=== PATIENT | male | born 1970 | race Caucasian/White ===

== ENCOUNTER 2024-06-17 10:50 | Inpatient (IN) | payer OTHER ==
[~2024-06-17] VITALS: Ht 172.7 cm; Wt 101.2 kg
[2024-06-17 11:01] VITALS: BP 182/83; PULSE 94; RESP 18; TEMP 98.4; O2SAT 99
--- NOTE | 2024-06-17 11:15 | NUR ---
TO ER BED 7
--- NOTE | 2024-06-17 11:18 | NUR ---
53/M PRESENTED IN ED CC OF NON BLOODY VOMITING AND DIARRHEA X4 DAYS, NAUSEA , LQ ABD PAIN NON RADIATING SHARP PAIN 5/10 THAT COMES AND GO X1 WEEK TAKEN IBUPROFEN. DENIES FLU, DIARRHEA, CP, SOP, FEVER. PMHX DENIES ALLERGY ACETAMINOPHEN. VOMITING REACTION.
[2024-06-17 12:09] LABS: HEMOGLOBIN 16.2 g/dL (12.0-18.0); MEAN CORPUSCULAR HEMOGLOBIN 34 pg (27-31); MONOCYTES # (AUTO) 0.3 K/uL (0.8-1.0); WHITE BLOOD COUNT (AUTO) 4.6 K/uL (4.8-10.8)
[2024-06-17] MEDS: NACL 0.9% 1,000 ML IV ONE (12:14)
[2024-06-17 12:15] LABS: BASOPHILS # (AUTO) 0.1 K/uL (0.00-0.22); BASOPHILS % (AUTO) 1.3 % (0.0-2.0); EOSINOPHILS % (AUTO) 0.8 % (0.0-4.0); HEMATOCRIT 46.9 % (36-52); LYMPHOCYTES # (AUTO) 0.5 K/uL (2.0-11.5); LYMPHOCYTES % (AUTO) 11.4 % (20.5-51.1); MEAN CORPUSCULAR HGB CONC 34 g/dL (33-37); MEAN CORPUSCULAR VOLUME 97.5 fL (80-94); MONOCYTES % (AUTO) 6.7 % (1.7-9.3); NEUTROPHILS # (AUTO) 3.7 K/uL (1.8-7.7); NEUTROPHILS % (AUTO) 79.8 % (42.2-75.2); PLATELET COUNT (AUTO) 196 K/uL (140-450); RED BLOOD CELL COUNT(AUTO) 4.81 MIL/uL (4.20-6.10); RED CELL DISTRIBUTION WIDTH 13.3 % (11.6-13.7)
[2024-06-17] MEDS: ONDANSETRON 4 MG/2 ML VIAL IVP ONE (12:16)
[2024-06-17] MEDS: MORPHINE SULFATE 2 MG/ML SYR IVP ONE (12:18)
[2024-06-17] MEDS: LORazepam 2 MG/ML VIAL IVP ONE (12:22)
[2024-06-17 12:25] LABS: ANION GAP 18.6 (8-16); CALCIUM 8.1 mg/dL (8.5-10.1); CARBON DIOXIDE 20.7 mmol/L (21-32); POTASSIUM 3.3 mmol/L (3.5-5.1)
[2024-06-17 13:20] LABS: APPEARANCE,URINE CLEAR (CLEAR); BILIRUBIN,URINE NEGATIVE (NEGATIVE); BLOOD, URINE 1+ (NEGATIVE); COLOR,URINE YELLOW (YELLOW); LEUKOCYTE ESTERASE ,URINE NEGATIVE (NEGATIVE); NITRITE, URINE NEGATIVE (NEGATIVE); PROTEIN,URINE TRACE (NEGATIVE); UGLUCOSE 1+ (NEGATIVE); UROBILINOGEN,URINE 0.2 EU/dL (0.2 - 1)
[2024-06-17] MEDS ORDERED: KCL 20 MEQ IN 100 mL PREMIX 200 ML IV PRN (13:20)
[2024-06-17] MEDS ORDERED: ONDANSETRON 4 MG/2 ML VIAL IVP PRN (13:20)
[2024-06-17] MEDS ORDERED: MAGNESIUM OXIDE 400 MG TAB PO PRN (13:20)
[2024-06-17] MEDS ORDERED: HYDROcodone/APAP 5/325 MG 1 TAB TAB PO PRN (13:20)
[2024-06-17] MEDS ORDERED: LORazepam 1 MG TAB PO PRN ×2 (13:20→13:25)
[2024-06-17] MEDS ORDERED: traMADol 50 MG TAB PO PRN (13:20)
[2024-06-17] MEDS: diazePAM 5 MG TAB PO SCH (13:34)
[2024-06-17 13:42] LABS: ALBUMIN 3.7 g/dL (3.4-5.0); BILIRUBIN,DIRECT 0.2 mg/dL (0.0-0.3); TOTAL BILIRUBIN 0.8 mg/dL (0.0-1.0); TOTAL PROTEIN, SERUM 7.7 g/dL (6.4-8.2)
--- NOTE | 2024-06-17 14:01 | NUR ---
REPORT GIVEN TO YUSEF. PT GOING TO TELE 105B, NO FURTHER QUESTIONS ASKED
[2024-06-17 14:10] LABS: BACTERIA,URINE 3+ /HPF (None Seen); MUCUS,URINE 3+ /LPF (None Seen); SQUAMOUS EPITHELIAL CELL,UR 4-10 (MOD) /LPF (0-3 (FEW)); WBC,URINE 0-5 /HPF (0-5)
[2024-06-17 14:11] LABS: HYALINE CASTS, URINE 0-10 /LPF (None Seen)
[2024-06-17 16:00] VITALS: PULSE 89; RESP 18; O2SAT 98
--- NOTE | 2024-06-17 19:25 | NUR ---
RECEIVED PT FROM DAY SHIFT NURSE. PT IS ON BED AWAKE, ALERT AND VERBALLY RESPONSIVE. IV SITE IS ON LEFT FOREARM 20G, ON SALINE LOCK. NO SOB OR DISTRESS.
[2024-06-17 20:00] VITALS: BP 159/80; PULSE 71; PULSE 72; RESP 19; TEMP 97.2; O2SAT 98
[2024-06-17] MEDS: ZOLPIDEM 5 MG TAB PO PRN (23:05)
[2024-06-18] VITALS: BP 156/81; PULSE 62; PULSE 71; RESP 19; TEMP 97.6; O2SAT 96
[2024-06-18 04:00] VITALS: BP 153/76; PULSE 54; PULSE 81; RESP 19; TEMP 97.3; O2SAT 97
[2024-06-18 06:47] LABS: BASOPHILS % (AUTO) 0.9 % (0.0-2.0); EOSINOPHILS # (AUTO) 0.2 K/uL (0-0.4); EOSINOPHILS % (AUTO) 3.7 % (0.0-4.0); HEMATOCRIT 42.4 % (36-52); HEMOGLOBIN 14.6 g/dL (12.0-18.0); LYMPHOCYTES # (AUTO) 0.4 K/uL (2.0-11.5); LYMPHOCYTES % (AUTO) 8.3 % (20.5-51.1); MEAN CORPUSCULAR HEMOGLOBIN 34 pg (27-31); MEAN CORPUSCULAR HGB CONC 34 g/dL (33-37); MEAN CORPUSCULAR VOLUME 97.5 fL (80-94); MONOCYTES # (AUTO) 0.4 K/uL (0.8-1.0); MONOCYTES % (AUTO) 8.1 % (1.7-9.3); PLATELET COUNT (AUTO) 158 K/uL (140-450); RED BLOOD CELL COUNT(AUTO) 4.35 MIL/uL (4.20-6.10); RED CELL DISTRIBUTION WIDTH 13.2 % (11.6-13.7)
[2024-06-18 06:59] LABS: ALBUMIN 3.4 g/dL (3.4-5.0); ANION GAP 12.8 (8-16); CALCIUM 8.2 mg/dL (8.5-10.1); CARBON DIOXIDE 25.3 mmol/L (21-32); CREATININE 0.8 mg/dL (0.6-1.3); MAGNESIUM 1.2 mg/dL (1.8-2.4); POTASSIUM 3.1 mmol/L (3.5-5.1); TOTAL PROTEIN, SERUM 6.9 g/dL (6.4-8.2)
--- NOTE | 2024-06-18 07:10 | NUR ---
RECEIVED PATIENT FROM NIGHT NURSE PATIENT IS ALERT AND ORIENTED X4 ON ROOM AIR NO COMPLAINTS OF CHEST PAIN IV SITE INTACT LEFT FOREARM 20G SL PATIENT IS ABLE TO AMBULATE SAFETY PRECAUTIONS IN PLACE. [id number]
[2024-06-18 08:00] VITALS: BP 162/59; PULSE 60; PULSE 69; RESP 17; TEMP 97.2; O2SAT 96
[2024-06-18] MEDS: THIAMINE 100 MG TAB PO SCH (08:18)
[2024-06-18] MEDS: POTASSIUM CHLORIDE 10 MEQ TABER PO PRN (08:18)
[2024-06-18] MEDS: DOCUSATE SODIUM 100 MG GELCAP PO SCH (08:18)
[2024-06-18] MEDS: NICOTINE TRANSD SYS 14 MG/24 HR PATCH TD SCH (08:19)
[2024-06-18] MEDS: FOLIC ACID 1 MG TAB PO SCH (08:19)
[2024-06-18] MEDS: MULTIVITAMIN 1 TAB PO SCH (08:19)
[2024-06-18] MEDS: MAG SULF 2000 MG/WATER PREMIX 50 ML IV PRN (08:21)
[2024-06-18] MEDS: MEDS-TO-BEDS MC SCH (08:21)
--- NOTE | 2024-06-18 08:42 | NUR ---
PATIENT HAS BEEN SCREENED AND CATEGORIZED HIGH NUTRITION RISK. PATIENT WILL BE SEEN WITHIN 1-2 DAYS OF ADMISSION. 06/18/24 06/19/24 [facility] REFERRAL RECEIVED FOR VOMITING > [address]
--- NOTE | 2024-06-18 10:00 | NUR ---
PATIENT WITH SON AT BEDSIDE. [id number]
[2024-06-18] MEDS: MUPIROCIN 2% OINT 22 GM TUBE TP SCH (11:42)
[2024-06-18 12:00] VITALS: BP 147/65; PULSE 64; PULSE 79; RESP 18; TEMP 97.6; O2SAT 96
--- NOTE | 2024-06-18 14:00 | NUR ---
PATIENT IS AWAKE IN BED NO COMPLAINTS OF PAIN. [id number]
--- NOTE | 2024-06-18 14:31 | NUR ---
06/18/24 RD INITIAL ASSESSMENT COMPLETED PLEASE REFER TO NUTRITION ASSESSMENT UNDER CARE ACTIVITY FOR ESTIMATED NUTRITIONAL NEEDS. 1. CONTINUE CARDIAC DIET TOLERATED 2. RD PROVIDED NUTRITION EDUCATION AND HANDOUTS ON HEART-HEALTHY DIET 3. RD TO FOLLOW-UP 7 DAYS, LOW RISK LEN ANGEL, RD
[2024-06-18 16:00] VITALS: PULSE 8
[2024-06-18] MEDS ORDERED: LORA-478 PO (17:30)
[2024-06-18] MEDS ORDERED: BACTO TP (17:33)
[2024-06-18] MEDS: LOSARTAN 25 MG TAB PO SCH (17:35)
[2024-06-18] MEDS ORDERED: LOSA25TA32 PO (17:37)
[2024-06-18 17:42] VITALS: BP 147/65; PULSE 8; RESP 18; TEMP 97.6
--- NOTE | 2024-06-18 18:11 | NUR ---
PATIENT DISCHARGED IV REMOVED ID BAND REMOVED. [id number]
== END 2024-06-18 18:25 | disposition home or self-care (01) | DRG 426 ==
LOC: MED 10:50 → MTU 13:20
PROVIDERS: ADMIT Hospitalist; ATTEND Hospitalist
DX: E87.1 Hypo-osmolality and hyponatremia (principal); E87.20 Acidosis, unspecified; E44.0 Moderate protein-calorie malnutrition; E83.51 Hypocalcemia; K70.0 Alcoholic fatty liver; E87.6 Hypokalemia; F10.239 Alcohol dependence with withdrawal, unspecified; K57.90 Diverticulosis of intestine, part unspecified, without perforation or abscess without bleeding; R73.9 Hyperglycemia, unspecified; D72.819 Decreased white blood cell count, unspecified; Z88.8 Allergy status to other drugs, medicaments and biological substances; Z79.899 Other long term (current) drug therapy; Z68.33 Body mass index [BMI] 33.0-33.9, adult
CPT/HCPCS: 36415; 71045; 80048; 80053; 80076; 81001; 83735; 85025; 87081; 93005; 96361; 96374; 96375; 99285; J2060; J2270; J2405; J3475; Q0092; Q0163